=== PATIENT | male | born 1970 | race Caucasian/White ===

== ENCOUNTER 2016-03-28 19:07 | Emergency (ER) | payer MEDICARE, OTHER ==
[2016-03-28 20:35] LABS: URINE BILIRUBIN NEGATIVE (NEGATIVE); URINE BLOOD TRACE (NEGATIVE); URINE GLUCOSE (UA) NEGATIVE (NEGATIVE); URINE LEUKOCYTE ESTERASE TRACE (NEGATIVE); URINE NITRITE NEGATIVE (NEGATIVE); URINE PROTEIN NEGATIVE (NEGATIVE); URINE UROBILINOGEN NORMAL (0-1 mg/dl)
[2016-03-28 20:36] LABS: URINE APPEARANCE CLEAR; URINE COLOR LIGHT YELLOW
[2016-03-28 20:45] LABS: URINE EPITHELIAL CELLS 0 /hpf
[2016-03-28 20:46] LABS: URINE BACTERIA FEW
== END 2016-03-28 20:21 | disposition home or self-care (01) ==
LOC: ED 19:07
DX: Z43.6 Encounter for attention to other artificial openings of urinary tract (principal); F84.0 Autistic disorder; E10.9 Type 1 diabetes mellitus without complications; Z79.4 Long term (current) use of insulin

== ENCOUNTER 2016-06-09 18:28 | Emergency (ER) | payer MEDICARE, OTHER ==
[2016-06-09] MEDS ORDERED: ONDANSETRON 4 MG ODT TAB ONE (20:25)
[2016-06-09 20:50] LABS: ABSOLUTE NEUTROPHIL COUNT 1.9 K/mm3 (1.8-7.7); EOS # 0.1 (0.0-0.5); EOS % 1.5 % (0.9-2.9); HEMATOCRIT 33.3 % (32.0-52.0); HEMOGLOBIN 11.6 gm/l (14.0-18.0); LYMPH % 30.7 % (15-45); MEAN CELL VOLUME 82.8 fl (80.0-94.0); MEAN CORPUSCULAR HEMOGLOBIN 28.9 pg (27.0-31.0); MEAN CORPUSCULAR HGB CONC 34.8 g/dl (33.0-37.0); MEAN PLATELET VOLUME 9.3 fl (7.4-10.4); MONO # 0.4 (0.0-0.8); MONO % 12.7 % (4-12); NEUT % 55.1 % (43-75); PLATELET COUNT 199 K/mm3 (130-400); RED CELL DISTRIBUTION WIDTH 12.2 % (11.5-14.5)
[2016-06-09 21:07] LABS: SPECIFIC GRAVITY 1.015 (1.001-1.030); URINE BILIRUBIN NEGATIVE (NEGATIVE); URINE BLOOD NEGATIVE (NEGATIVE); URINE GLUCOSE (UA) NEGATIVE (NEGATIVE); URINE LEUKOCYTE ESTERASE NEGATIVE (NEGATIVE); URINE NITRITE NEGATIVE (NEGATIVE); URINE PROTEIN NEGATIVE (NEGATIVE); URINE UROBILINOGEN NORMAL (0-1 mg/dl)
[2016-06-09 21:08] LABS: URINE APPEARANCE CLEAR; URINE COLOR YELLOW
[2016-06-09 21:17] LABS: ALB/GLOB RATIO 1.5 (>1.0); ALBUMIN 4.3 gm/dL (3.5-5.7); CALCIUM 9.1 mg/dL (8.6-10.3)
--- NOTE | 2016-06-09 21:28 | RAD ---
Name: TERESA DOUGHERTY Exam: Two-view chest Comparison: None Clinical history: Cough and fever Findings: 2 views of the chest are submitted. The heart mediastinum and hilar structures are within normal limits. There is no failure, infiltrate, pleural effusion or pneumothorax. Regional skeleton is within normal limits. Impression: No acute cardiopulmonary process
== END 2016-06-09 22:23 | disposition home or self-care (01) ==
LOC: ED 18:28
DX: J40 Bronchitis, not specified as acute or chronic (principal); E10.9 Type 1 diabetes mellitus without complications; F84.0 Autistic disorder; F79 Unspecified intellectual disabilities; Z79.4 Long term (current) use of insulin
CPT/HCPCS: 83605; 85025; 87040 ×2; 80053; 81003; 71020; 99283 ×2; 82962; 36415; A9270

== ENCOUNTER 2016-06-26 14:04 | Outpatient (CLI) | payer MEDICARE, OTHER | END 2016-06-26 14:05 | disposition home or self-care (01) | LOC: NC 14:04 | PROVIDERS: ATTEND Nurse Practitioner Family | DX: E13.29 Other specified diabetes mellitus with other diabetic kidney complication (principal); Z71.3 Dietary counseling and surveillance; F84.0 Autistic disorder; Z68.34 Body mass index [BMI] 34.0-34.9, adult; I10 Essential (primary) hypertension; Z79.4 Long term (current) use of insulin ==